=== PATIENT | female | born 1970 ===

== ENCOUNTER 2018-04-23 11:42 | Emergency (ER) | payer OTHER ==
[2018-04-23 11:55] VITALS: BP 117/75; PULSE 63; RESP 20; TEMP 98.6; O2SAT 99
[2018-04-23 11:56] VITALS: BMI 34.3
--- NOTE | 2018-04-23 13:09 | ED PDOC ---
HPI: Psych/Substance Abuse Chief Complaint (Provider): Unable to sleep History Per: Patient History/Exam Limitations: no limitations Onset/Duration Of Symptoms: Days Current Symptoms Are (Timing): Still Present Additional Complaint(s): 47 yo female with history of bipolar disorder presents for evaluation of being unable to sleep. Pt states she is supposed to be taking medications for her bipolar however she has not been. PT does not remember the name of the medications. Pt reports mild headache from not sleeping which she said resolved with aspirin. <Yolette Helms - Last Filed: 04/23/18 13:48> <Deb Maddox - Last Filed: 04/28/18 11:52> Time Seen by Provider: 04/23/18 12:16 Chief Complaint (Nursing): Anxiety Past Medical History Reviewed: Historical Data, Nursing Documentation, Vital Signs Vital Signs: Last Vital Signs Temp 98.6 F 04/23/18 11:54 Pulse 63 04/23/18 11:54 Resp 20 04/23/18 11:54 BP 117/75 04/23/18 11:54 Pulse Ox 99 04/23/18 11:54 - Medical History PMH: Anxiety, Bipolar Disorder Denies: Chronic Kidney Disease - Surgical History Surgical History: No Surg Hx - Family History Family History: States: No Known Family Hx - Living Arrangements Living Arrangements: With Family - Social History Current smoker - smoking cessation education provided: No - Immunization History Hx Tetanus Toxoid Vaccination: No <Yolette Helms - Last Filed: 04/23/18 13:48> Vital Signs: Last Vital Signs Temp 98.6 F 04/23/18 11:54 Pulse 63 04/23/18 11:54 Resp 20 04/23/18 11:54 BP 117/75 04/23/18 11:54 Pulse Ox 99 04/23/18 13:49 <Deb Maddox - Last Filed: 04/28/18 11:52> - Allergies Allergies/Adverse Reactions: Allergies Allergy/AdvReac Type Severity Reaction Status Date / Time No Known Allergies Allergy Verified 04/23/18 12:12 Review of Systems ROS Statement: Except As Marked, All Systems Reviewed And Found Negative Constitutional: Negative for: Fever, Chills Cardiovascular: Negative for: Chest Pain, Palpitations Respiratory: Negative for: Cough, Shortness of Breath Neurological: Positive for: Headache (Resolved ) Psych: Positive for: Other <Yolette Helms - Last Filed: 04/23/18 13:48> Physical Exam - Reviewed Nursing Documentation Reviewed: Yes Vital Signs Reviewed: Yes - Physical Exam Appears: Positive for: Well, Non-toxic, No Acute Distress Head Exam: Positive for: ATRAUMATIC, NORMAL INSPECTION, NORMOCEPHALIC Skin: Positive for: Normal Color, Warm, DRY Eye Exam: Positive for: Normal appearance ENT: Positive for: Normal ENT Inspection Neck: Positive for: Normal, Painless ROM Cardiovascular/Chest: Positive for: Regular Rate, Rhythm Respiratory: Positive for: Normal Breath Sounds. Negative for: Accessory Muscle Use, Respiratory Distress Back: Positive for: Normal Inspection Extremity: Positive for: Normal ROM Neurologic/Psych: Positive for: Alert, Oriented <Yolette Helms - Last Filed: 04/23/18 13:48> - ECG O2 Sat by Pulse Oximetry: 99 <Yolette Helms - Last Filed: 04/23/18 13:48> Medical Decision Making Medical Decision Making: Pt referred to [facility]formatics [facility] at [phone]. [phone] Disposition given by crisis team. <Yolette Helms - Last Filed: 04/23/18 13:48> Disposition - Patient ED Disposition Is Patient to be Admitted: No - Disposition Disposition: Routine/Home Disposition Time: 13:49 <Yolette Helms - Last Filed: 04/23/18 13:48> <Deb Maddox - Last Filed: 04/28/18 11:52> - Clinical Impression Clinical Impression: Anxiety - Disposition Referrals: [facility] [Outside] Condition: STABLE Instructions: Anxiety, Adult (DC) Forms: [employer] ([place]), [facility] ED School/Work Excuse Addendum Addendum: 04/28/18 11:52 reviewed chart, agree with assessment and plan. <Deb Maddox - Last Filed: 04/28/18 11:52>
== END 2018-04-23 14:04 | disposition home or self-care (01) ==
LOC: H.ER 11:42
DX: F41.9 Anxiety disorder, unspecified (principal); F31.9 Bipolar disorder, unspecified